=== PATIENT | male | born 1995 ===

== ENCOUNTER 2017-06-29 09:52 | Emergency (ER) | payer OTHER ==
[~2017-06-29] VITALS: Ht 167.6 cm; Wt 81.6 kg
== END 2017-06-29 11:45 | disposition home or self-care (01) ==
LOC: ER 09:52
DX: L05.01 Pilonidal cyst with abscess (principal); L02.31 Cutaneous abscess of buttock

== ENCOUNTER 2018-05-23 00:02 | Emergency (ER) | payer OTHER ==
[~2018-05-23] VITALS: Ht 50.8 cm; Wt 83.9 kg
== END 2018-05-23 10:00 | disposition home or self-care (01) ==
LOC: ER 00:02 → CPU-OBS 00:05 → ER 00:05
DX: R07.89 Other chest pain (principal)
CPT/HCPCS: 93005; G0378; G0379

== ENCOUNTER 2018-08-01 19:29 | Emergency (ER) | payer OTHER ==
[~2018-08-01] VITALS: Ht 167.6 cm; Wt 81.6 kg
== END 2018-08-01 20:52 | disposition home or self-care (01) ==
LOC: ER 19:29
DX: L05.91 Pilonidal cyst without abscess (principal)

== ENCOUNTER → 2019-02-13 | Emergency (ER) | payer OTHER ==
[~2019-02-13] VITALS: Ht 177.8 cm; Wt 94.8 kg
[~2019-02-13] MED LIST: DOLOGEN 325-11 EACH PO; OSEL75CA PO; PHENAGIL CH TA1 EACH PO
== END | disposition home or self-care (01) ==
LOC: ER 20:12
DX: J11.1 Influenza due to unidentified influenza virus with other respiratory manifestations (principal)